=== PATIENT | male | born 1960 | race African-American/Black ===

== ENCOUNTER 2016-06-04 17:55 | Emergency (ER) | payer SELFPAY ==
[~2016-06-04 17:55] MED LIST: LISI-357 PO
[2016-06-04 17:56] VITALS: BP 172/100; PULSE 85; RESP 20; TEMP 97.6; O2SAT 98
--- NOTE | 2016-06-04 19:07 | PD ---
Physical Exam Date Seen by Provider: Jun 04, 2016 Time Seen by Provider: 19:05 Narrative 56 YOBM C/O L WRIST PAIN 2MONTHS NO INJURY VITALS REVIEWED. AWAITING BED PLACEMENT Data Data Last Documented VS Vital Signs Date Time Temp Pulse Resp B/P Pulse Ox O2 Delivery O2 Flow Rate FiO2 06/04/16 17:56 97.6 85 20 172/100 98 Room Air [facility] Medical Record Reviewed: Yes Supervised Visit with JINA: Yes Abelardo Abdi Jun 04, 2016 19:07
--- NOTE | 2016-06-04 19:48 | RADRPT ---
EXAM DATE/TIME: 06/04/2016 19:27 [facility] COMPARISON: No previous studies available for comparison. INDICATIONS : Left wrist pain and swelling for the past two months. No prior trauma. MEDICAL HISTORY : None. SURGICAL HISTORY : None. ENCOUNTER: Initial ACUITY: 2 months PAIN SCORE: 5/10 LOCATION: Left wrist. FINDINGS: No definite fractures, or dislocations are identified. No definite lytic or sclerotic lesion is seen . Slight hypertrophic change is present involving the distal tibial ulnar joint. CONCLUSION: Chronic changes and no evidence for acute fracture. Nelson Sanchez MD on June 04, 2016 at 19:46 Board Certified Radiologist. This report was verified electronically.
--- NOTE | 2016-06-04 19:50 | PD ---
HPI Chief Complaint: Injury Time Seen by Provider: 19:40 Travel History International Travel<30 days: No Contact w/Intl Traveler<30days: No Traveled to known affect area: No History of Present Illness HPI [id number] 56-year-old male presents for evaluation of left wrist pain. 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 He reports that 2 months ago he was chipping away at some concrete with a pick ax and since then he has had pain in the lateral aspect of the left wrist. The pain is an aching pain that is worse with activities of daily living such as brushing his teeth with his left hand and picking things up. He has continued to work in construction and the symptoms have persisted which prompted evaluation. He denies any other injuries and he has no other complaints at this time. [facility] Past Medical History Medical History: Denies Significant Hx Diminished Hearing: No Past Surgical History Surgical History: No Previous Surgery Social History Alcohol Use: Yes (BEER weekends) Tobacco Use: Yes Substance Use: Yes (DAILY/MARIJUANA) Allergies-Medications (Allergen,Severity, Reaction): Coded Allergies: No Known Allergies (Verified , 06/04/16) Reported Meds & Prescriptions Reported Meds & Active Scripts Active Naproxen 500 Mg Tab 500 Mg PO BID 14 Days Review of Systems Musculoskeletal: Positive: Limited ROM, Pain Skin: Positive Other (denies open wounds) Physical Exam Narrative GENERAL: Well-developed well-nourished male in no acute distress SKIN: Warm and dry. No bruising or soft tissue swelling CARDIOVASCULAR: Regular rate and rhythm. No murmur appreciated. RESPIRATORY: No accessory muscle use. Clear to auscultation. Breath sounds equal bilaterally. MUSCULOSKELETAL: No obvious deformities. No clubbing. No cyanosis. No edema. The patient has no tenderness to palpation. His pain seems to be localized to the lateral left wrist abductor pollicis longus and extensor pollicis brevis tendons, positive Belinda's test. Distal sensation is preserved in the median radial and ulnar nerve distributions. Data Data Last Documented VS Vital Signs Date Time Temp Pulse Resp B/P Pulse Ox O2 Delivery O2 Flow Rate FiO2 06/04/16 17:56 97.6 85 20 172/100 98 Room Air Orders Wrist, Complete ([id number]) (06/04/16 19:08) Ketorolac Inj (Toradol Inj) (06/04/16 20:00) Splint Or Brace Apply/Monitor (06/04/16 19:52) MDM Medical Decision Making Medical Screen Exam Complete: Yes Emergency Medical Condition: Yes Medical Record Reviewed: Yes Differential Diagnosis De Quervain's tenosynovitis, scaphoid fracture, osteoarthritis, peripheral nerve entrapment, tendinitis Narrative Course 56 year old male with lateral left wrist pain for 2 months, works in construction and symptoms began when he was using a pick ax to break up concrete. Examination reveals a positive Belinda's test and pain localized to the abductor pollicis longus and extensor pollicis brevis consistent with de Quervain's tenosynovitis. Wrist x-ray reveals chronic changes, no acute abnormalities. The patient is being discharged with a short course of NSAIDs, wrist splint, recommended modifying activities of daily living and following up in 2 weeks with primary care physician for reassessment. He is stable for discharge. Diagnosis Primary Impression: De Quervain's tenosynovitis, left Additional Instructions: Rest of the left wrist. Decreased use of the left wrist. Ice pack to the affected area several times a day 10 minutes at a time. Take the medication with meals. Splint as needed. Follow up in 2 weeks with primary care physician and return for any emergent medical conditions. Med/Other Pt SpecificInfo: Prescription(s) given, Orthopedic Instructions Scripts Naproxen 500 Mg [id number] Mg PO BID 14 Days Ref 0 Prov:Goran Rucker MD 06/04/16 Disposition: 01 DISCHARGE HOME Condition: Stable Cristino Hall Jun 04, 2016 19:50
[2016-06-04] MEDS ORDERED: NAPR500T PO (19:52)
[2016-06-04] MEDS ORDERED: KETOROLAC TROMETHAMINE 60 MG/2 ML (IM) VIAL IM ONE (20:00)
== END 2016-06-04 20:31 | disposition home or self-care (01) ==
LOC: NETRI 17:55
DX: M65.4 Radial styloid tenosynovitis [de Quervain] (principal); X50.3XXA Overexertion from repetitive movements, initial encounter; Y93.H3 Activity, building and construction; Y92.9 Unspecified place or not applicable; Y99.0 Civilian activity done for income or pay; Z72.0 Tobacco use
CPT/HCPCS: 73110; 96372; 99283; J1885; L3908

== ENCOUNTER 2017-01-20 06:45 | Emergency (ER) | payer SELFPAY ==
[~2017-01-20] VITALS: Ht 177.8 cm; Wt 93.0 kg
[~2017-01-20 06:45] MED LIST changes: -LISI-357 PO; +NAPR500T2 PO
[2017-01-20 06:46] VITALS: BP 172/110; PULSE 79; RESP 16; TEMP 98.7; O2SAT 96
--- NOTE | 2017-01-20 07:14 | PD ---
HPI Chief Complaint: Pain: Acute or Chronic Time Seen by Provider: 07:00 Travel History International Travel<30 days: No Contact w/Intl Traveler<30days: No Traveled to known affect area: No History of Present Illness HPI 56-year-old male presents to the emergency department for hand swelling and pain since about 1 week ago. States Saturday his pain worsened and she is concerned that he was a foreign body in the wound. 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 He thought he was able to pull it out completely however, he is unsure at this point. Patient does have full range of motion denies numbness or tingling of the fingers or hand. Patient is able to flex and move fingers however, his thumb is painful with movement. Patient denies chronic medical issues or chronic medication use. PFSH Past Medical History Diminished Hearing: No Social History Alcohol Use: Yes (BEER ) Tobacco Use: Yes Substance Use: Yes (DAILY/MARIJUANA) Allergies-Medications (Allergen,Severity, Reaction): Coded Allergies: No Known Allergies (Verified Adverse Reaction, Unknown, 01/20/17) Reported Meds & Prescriptions Reported Meds & Active Scripts Active Bactrim DS (Sulfamethoxazole-Trimethoprim) 800-160 Mg Tab 1 Tab PO BID Keflex (Cephalexin) 500 Mg Cap 500 Mg PO Q8H 7 Days Review of Systems Except as stated in HPI: all other systems reviewed are Neg Physical Exam Narrative GENERAL: Well-nourished, well-developed patient. SKIN: Focused skin assessment warm/dry. HEAD: Normocephalic. EYES: No scleral icterus. No injection or drainage. NECK: Supple, trachea midline. No JVD or lymphadenopathy. CARDIOVASCULAR: Regular rate and rhythm without murmurs, gallops, or rubs. RESPIRATORY: Breath sounds equal bilaterally. No accessory muscle use. MUSCULOSKELETAL: No cyanosis, or edema. right thumb- Palmar aspect, base of thumb, slight area of fluctuance- difficult assessing because of extensive callousing. Puncta c/w pt history. ttp over proximal phalanx BACK: Nontender without obvious deformity. No CVA tenderness. Data Data Last Documented VS Vital Signs Date Time Temp Pulse Resp B/P (MAP) Pulse Ox O2 Delivery O2 Flow Rate FiO2 01/20/17 06:46 98.7 79 16 172/110 (130) 96 Room Air Orders Orders Hand, Limited (2vws) (01/20/17 ) Ketorolac Inj (Toradol Inj) (01/20/17 07:15) Sulfamet-Trimeth Ds 800-160 Mg (Bactrim (01/20/17 07:15) Tetanus/Diphtheria Tox Adult (Tetanus/Di (01/20/17 07:15) Cephalexin (Keflex) (01/20/17 07:15) Wound Care (01/20/17 07:48) Wound Culture And Gram Stain (01/20/17 07:48) [facility] Medical Decision Making Medical Screen Exam Complete: Yes Emergency Medical Condition: Yes Differential Diagnosis right thumb Foreign body versus abscess versus cellulitis Narrative Course 56-year-old male presents to the emergency department for hand swelling and pain since about 1 week ago. States Saturday his pain worsened and she is concerned that he was a foreign body in the wound. 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 He thought he was able to pull it out completely however, he is unsure at this point. Patient does have full range of motion denies numbness or tingling of the fingers or hand. Patient is able to flex and move fingers however, his thumb is painful with movement. Patient denies chronic medical issues or chronic medication use. Vital signs- blood pressure elevated will recheck before discharge. Apparently patient does have high blood pressure however, he does not take medication. Physical exam- concern for foreign body, abscess versus cellulitis. TTP does not extend into the hand X-ray- no obvious foreign body Incision and drainage performed. Culture sent. Advised on wound care, antibiotics as prescribed Advised to follow up with primary care physician within 2 days. If worsening return to the emergency department Procedures Procedure Narrative INCISION AND DRAINAGE OF ABSCESS: The area was prepped and was sterilely draped. A digital block of 1% % Xylocaine without epi with a total number 3 mL was used to anesthetize the area properly. A number 11 scalpel was used to make a 5 mm incision across the area of the abscess. The abscess was drained, complex loculations were broken down, and irrigated with normal saline. Cultures were obtained. Quarter inch iodoform packing was placed in the wound. Sterile dressing applied. Patient advised to have packing removed in 1 day Diagnosis Primary Impression: Abscess Referrals: Primary Care Physician Additional Instructions: Removed packing in 24 hours. you may also remove dressing in 24 hours. Avoid excessive moisture to the wound and for the next 7 days. Change dressings every day. Take medications as prescribed. Follow up with [facility] for evaluation The wound may continue to drain. Scripts Sulfamethoxazole-Trimethoprim (Bactrim DS) 800-160 Mg Tab 1 TAB PO BID for Infection, #14 TAB 0 Refills Prov: Peter Gama MD 01/20/17 Cephalexin (Keflex) 500 Mg Cap 500 MG PO Q8H for Infection for 7 Days, #21 CAP 0 Refills Prov: Peter Gama MD 01/20/17 Disposition: 01 DISCHARGE HOME Condition: Stable Soledad Viramontes Jan 20, 2017 07:14
[2017-01-20] MEDS ORDERED: TETANUS/DIPHTHERIA TOXOID ADULT 0.5 ML VIAL IM ONE (07:15)
[2017-01-20] MEDS ORDERED: CEPHALEXIN MONOHYDRATE 500 MG CAP PO ONE (07:15)
[2017-01-20] MEDS ORDERED: KETOROLAC TROMETHAMINE 60 MG/2 ML (IM) VIAL IM ONE (07:15)
[2017-01-20] MEDS ORDERED: SULFAMETHOXAZOLE-TRIMETHOPRIM DS 800-160 MG TAB PO ONE (07:15)
--- NOTE | 2017-01-20 07:25 | RADRPT ---
EXAM DATE/TIME: 01/20/2017 07:12 [facility] COMPARISON: No previous studies available for comparison. INDICATIONS : Pain and swelling right hand, thumb Possible foreign body, wood splinter. MEDICAL HISTORY : None. SURGICAL HISTORY : None. ENCOUNTER: Initial ACUITY: 1 week PAIN SCORE: 8/10 LOCATION: Right Hand FINDINGS: There is soft tissue swelling in the thenar region. No radiopaque foreign body demonstrated. No fract ure or subluxation. CONCLUSION: Soft tissue swelling without a perceptible foreign body. Ian Braun MD on January 20, 2017 at 7:22 Board Certified Radiologist. This report was verified electronically.
[2017-01-20] MEDS ORDERED: BACT800T5 PO (07:50)
[2017-01-20] MEDS ORDERED: CEPH-460 PO (07:50)
[2017-01-20 08:23] VITALS: BP 169/98
== END 2017-01-20 08:30 | disposition home or self-care (01) ==
LOC: NEPD 06:45
DX: L02.511 Cutaneous abscess of right hand (principal); A49.01 Methicillin susceptible Staphylococcus aureus infection, unspecified site; Z72.0 Tobacco use; Z23 Encounter for immunization
CPT/HCPCS: 10060; 73120; 86403; 87070; 87186; 90471; 90714; 96372; 99284; J1885